=== PATIENT | female | born 1995 | race Caucasian/White ===

== ENCOUNTER 2020-08-06 08:48 | Emergency (ER) | payer OTHER ==
[2020-08-06 09:32] LABS: RED BLOOD COUNT 4.13 M/UL (4.00-5.10); WHITE BLOOD COUNT 5.5 K/UL (4.5-11.0)
[2020-08-06 09:55] LABS: BUN/CREATININE RATIO 16 (0-10)
== END 2020-08-06 11:39 | disposition home or self-care (01) ==
LOC: ER1 08:48
PROVIDERS: Physician Assistant Medical
DX: O99.891 Other specified diseases and conditions complicating pregnancy (principal); R10.2 Pelvic and perineal pain; Z3A.01 Less than 8 weeks gestation of pregnancy
CPT/HCPCS: 76817; 80053; 81001; 84702; 85025; 86900; 86901; 99284

== ENCOUNTER 2020-10-08 13:07 | Emergency (ER) | payer OTHER ==
[2020-10-08 13:42] LABS: HEMOGLOBIN 13.8 gm/dl (12.3-15.3); RED BLOOD COUNT 4.36 M/UL (4.00-5.10); WHITE BLOOD COUNT 9.5 K/UL (4.5-11.0)
[2020-10-08 14:20] LABS: BUN/CREATININE RATIO 14 (0-10)
[2020-10-08] MEDS ORDERED: ZOFRAN ODT 4 MG4 MG PO (16:26)
[2020-10-08] MEDS ORDERED: MECLIZINE HCL25 MG PO (16:26)
== END 2020-10-08 16:38 | disposition home or self-care (01) ==
LOC: ER1 13:07
DX: R42 Dizziness and giddiness (principal)
CPT/HCPCS: 80053; 81001; 82550; 82553; 83874; 84484; 84703; 85025; 93005; 99284

== ENCOUNTER 2021-10-07 05:49 | Emergency (ER) | payer OTHER ==
[~2021-10-07 05:49] MED LIST: MECLIZINE HCL25 MG PO; ZOFRAN ODT 4 MG4 MG PO
[2021-10-07 07:09] LABS: HEMOGLOBIN 13.6 gm/dl (12.3-15.3); RED BLOOD COUNT 4.3 M/UL (4.00-5.10); WHITE BLOOD COUNT 8.4 K/UL (4.5-11.0)
[2021-10-07 07:29] LABS: BUN/CREATININE RATIO 17 (0-10)
[2021-10-07] MEDS ORDERED: ZOFRAN 4 MG TAB4 MG PO (09:22)
[2021-10-07] MEDS ORDERED: TORADOL 10 MG T10 MG PO (09:22)
== END 2021-10-07 09:42 | disposition home or self-care (01) ==
LOC: ER1 05:49
PROVIDERS: Physician Assistant
DX: N13.2 Hydronephrosis with renal and ureteral calculous obstruction (principal); N83.291 Other ovarian cyst, right side
CPT/HCPCS: 80053; 81001; 84703; 85025; 96374; 96375; 99284; J1885; J2405